=== PATIENT | female | born 1935 | race Hispanic/Latino ===

== ENCOUNTER → 2023-08-08 | Day surgery (SDC) | payer OTHER ==
--- NOTE | 2023-08-08 13:56 | RAD REPORT ---
EXAM DESCRIPTION: US - Guided FNA Non Breast - 08/08/2023 11:13 am CLINICAL HISTORY: E04.1 COMPARISON: No comparisons FINDINGS: Preoperative diagnosis: Isthmic thyroid nodule. Post operative diagnosis: Same. Conscious Sedation: None Fluoroscopy time: None Contrast used: None Estimated blood loss: Minimal Specimens:As below Risks and benefits were discussed with the patient's next kin. Informed consent was obtained. Time-ou t procedure was performed. The lower midline neck was prepped and draped in the usual sterile fashion . 1% lidocaine was infiltrated into the subcutaneous tissues for local anesthesia. Real time ultrasou nd scanning of the thyroid gland demonstrated a dominant isthmic bilobed predominantly hyperechoic no dule with a stellate hypoechoic or cystic center. Under ultrasound guidance, using pannus ornament of 25 gauge elongated short needles, 5 fine needle aspiration/biopsy specimens were obtained of this le thom and sent to pathology for evaluation. The patient tolerated the procedure well. There were no co mplications. IMPRESSION: Successful ultrasound-guided fine-needle aspiration biopsy/cytology of the thyroid isthm us nodule.
== END ==
LOC: FNA 08:55
PROVIDERS: ATTEND Otolaryngology Facial Plastic Surgery
PROC: 0GBJ3ZX Excision of Thyroid Gland Isthmus, Percutaneous Approach, Diagnostic (ICD-10-PCS; principal; 2023-08-08)
DX: E04.1 Nontoxic single thyroid nodule (principal)
CPT/HCPCS: 88162